=== PATIENT | male | born 1980 | race Caucasian/White ===

== ENCOUNTER 2016-12-12 00:44 | Emergency (ER) | payer OTHER ==
[~2016-12-12] VITALS: Ht 182.9 cm; Wt 115.0 kg
[~2016-12-12 00:44] MED LIST: ACET500C5 PO; BACTDS PO; HYDR-2086 PO; ONDA8TAB14 PO
[2016-12-12 01:07] VITALS: Ht 182.9 cm; Wt 115.0 kg
[2016-12-12] MEDS ORDERED: SOD CHLORIDE 0.9% 1,000 ML IV STA (01:57)
[2016-12-12 02:35] LABS: ADD SCAN DIFF NO
[2016-12-12 02:37] LABS: BASOPHILS % 0.4 % (0.0-2.0); EOSINOPHILS # 0.1 10^3/ul (0.0-0.5); EOSINOPHILS % 0.6 % (0.0-7.0); HEMATOCRIT 39.1 % (42.0-52.0); HEMOGLOBIN 13.4 g/dl (14.0-18.0); LYMPHOCYTES # 1.5 10^3/ul (0.8-2.9); LYMPHOCYTES % 15.6 % (15.0-51.0); MEAN CORPUSCULAR HEMOGLOBIN 28.6 pg (29.0-33.0); MEAN CORPUSCULAR HGB CONC 34.3 g/dl (32.0-37.0); MEAN CORPUSCULAR VOLUME 83.4 fl (82.0-101.0); MEAN PLATELET VOLUME 10.8 fl (7.4-10.4); MONOCYTE # 0.8 10^3/ul (0.3-0.9); MONOCYTES % 8.4 % (0.0-11.0); NEUTROPHIL # 7.2 10^3/ul (1.6-7.5); NEUTROPHILS % 74.7 % (39.0-77.0); PLATELET COUNT 236 10^3/UL (140-415); RED BLOOD COUNT 4.69 10^6/ul (4.70-6.10); RED CELL DISTRIBUTION WIDTH 11.9 % (11.5-14.5); WHITE BLOOD COUNT 9.6 10^3/ul (4.8-10.8)
[2016-12-12 02:45] LABS: ALBUMIN 3.9 g/dl (3.3-4.9)
[2016-12-12 02:46] LABS: POTASSIUM 3.8 mmol/L (3.5-5.1)
[2016-12-12 02:48] LABS: ALBUMIN/GLOBULIN RATIO 1.08; BILIRUBIN,INDIRECT 0.2 mg/dl (0-1.1); BILIRUBIN,TOTAL 0.2 mg/dl (0.2-1.3); CREATININE 0.93 mg/dl (0.61-1.24); TOTAL PROTEIN 7.5 g/dl (6.1-8.1)
[2016-12-12 02:49] LABS: CALCIUM 8.9 mg/dl (8.4-10.2)
[2016-12-12] MEDS ORDERED: VANCOMYCIN 1 GM (PMX) 250 ML IVPB SCH (03:00)
--- NOTE | 2016-12-12 03:03 | ERD ---
ER Documentation Chief Complaint Date/Time DATE: 12/12/16 TIME: 03:02 Chief Complaint Left leg swelling. HX of DVT HPI This is a 36-year-old male who presents to the emergency room for evaluation of left leg pain, redness and swelling. The patient does have a history of previous cellulitis which has required intravenous antibiotics in the past. The patient is also had to have surgical drainage of the leg due to cellulitis and abscess in the past. The patient states that he also has a history of a blood clot in that left lower extremity. He is not on any blood thinners at this time. The patient denies any chest pain or palpitations or fevers associated with this. He states that he his pain is an achy pain worse with any movement of the left lower extremity. ROS All systems reviewed and are negative except as per history of present illness. Medications Home Meds Active Scripts Acetaminophen* (Tylophen*) 500 Mg Capsule, 1 CAP PO Q6H Y for PAIN AND OR ELEVATED TEMP, #15 CAP Prov:JUSTINE WILSON MD 08/21/16 Ondansetron (Ondansetron Odt) 8 Mg Tab.rapdis, 8 MG PO Q6H Y for NAUSEA AND/OR VOMITING, #10 TAB Prov:JUSTINE WILSON MD 08/21/16 Sulfamethoxazole-Trimethoprim* (Bactrim* DS) 800-160 Mg Tab, 1 TAB PO BID for leg abscess s/p I & D, #20 TAB Prov:JAZMINE WHITE MD 07/30/16 Reported Medications Hydrocodone Bit-Acetaminophen* (Vicodin*) 5-300 Tab, 1 TAB PO Q4H Y for PAIN, TAB 07/23/16 Allergies Allergies: Coded Allergies: No Known Allergy (Unverified , 08/19/16) PMhx/Soc History of Surgery: No Anesthesia Reaction: No Hx Neurological Disorder: No Hx Respiratory Disorders: No Hx Cardiac Disorders: No Hx Psychiatric Problems: No Hx Miscellaneous Medical Probl: Yes (HTN) Hx Alcohol Use: No Hx Substance Use: No Hx Tobacco Use: No Smoking Status: Never smoker Physical Exam Vitals Vital Signs Date Time Temp Pulse Resp B/P Pulse Ox O2 Delivery O2 Flow Rate FiO2 12/12/16 04:00 70 20 138/80 98 Room Air 12/12/16 03:00 77 20 144/87 98 Room Air 12/12/16 01:58 92 20 155/95 99 Room Air 12/12/16 01:07 98.4 96 18 155/87 96 Physical Exam INITIAL VITAL SIGNS: Reviewed by me GENERAL: The patient is well developed and appropriate for usual state of health in no apparent distress HEENT: Pupils equal, round, and reactive to light. EOMI. There is no scleral icterus. NECK: C-spine is soft and supple, there is no meningismus. There is no cervical lymphadenopathy. LUNGS: Clear to auscultation bilaterally. There are no rales, wheezes or rhonchi. HEART: Regular rate and rhythm, no murmurs, clicks, rubs or gallops. ABDOMEN: Soft, non-tender, non-distended. There are bowel sounds in all four quadrants. No rebound or guarding. EXTREMITIES: There is no peripheral cyanosis or edema. No focal swelling or erythema. NEUROLOGICAL: The patient moves all four extremities with 5/5 strength. Cranial nerves II - XII are intact. Normal gait. Alert and oriented SKIN: Erythema noted over the distal lower extremity 4 cm superior to the medial malleolus. Negative skin sloughing, no abscess. No calf tenderness per HEME/LYMPHATIC: There is no evidence of excessive bruising or lymphedema. PSYCHIATRIC: The patient does not appear anxious or depressed. Result Diagram: 12/12/1621512/12/166 Results 24 hrs Laboratory Tests Test 12/12/16 02:16 Alanine Aminotransferase (ALT/SGPT) 81IU/L Albumin 3.9g/dl Albumin/Globulin Ratio 1.08 Alkaline Phosphatase 99IU/L Anion Gap 16 Aspartate Amino Transf (AST/SGOT) 50IU/L Basophils # 0.010^3/ul Basophils % 0.4% Blood Urea Nitrogen 18mg/dl Calcium Level 8.9mg/dl Carbon Dioxide Level 25mmol/L Chloride Level 106mmol/L Creatinine 0.93mg/dl Direct Bilirubin 0.00mg/dl Eosinophils # 0.110^3/ul Eosinophils % 0.6% Globulin 3.60g/dl Glucose Level 97mg/dl Hematocrit 39.1% Hemoglobin 13.4g/dl Indirect Bilirubin 0.2mg/dl Lipase 67U/L Lymphocytes # 1.510^3/ul Lymphocytes % 15.6% Mean Corpuscular Hemoglobin 28.6pg Mean Corpuscular Hemoglobin Concent 34.3g/dl Mean Corpuscular Volume 83.4fl Mean Platelet Volume 10.8fl Monocytes # 0.810^3/ul Monocytes % 8.4% Neutrophils # 7.210^3/ul Neutrophils % 74.7% Nucleated Red Blood Cells # 0.010^3/ul Nucleated Red Blood Cells % 0.0/100WBC Platelet Count 12637^3/UL Potassium Level 3.8mmol/L Red Blood Count 4.6910^6/ul Red Cell Distribution Width 11.9% Sodium Level 143mmol/L Total Bilirubin 0.2mg/dl Total Protein 7.5g/dl White Blood Count 9.610^3/ul Current Medications Medications (Trade) Dose Ordered Sig/Дмитрий Route PRN Reason Start Time Stop Time Status Last Admin Dose Admin Sodium Chloride 1,000 ml @ 1,000 mls/hr Q1H STAT IV 12/12/16 01:57 12/12/16 02:56 DC 12/12/16 02:25 Vancomycin HCl (Vancocin) 250 ml @ 125 mls/hr ONCE IVPB 12/12/16 03:00 12/12/16 04:59 12/12/16 03:01 Procedures/MDM Ultrasound left lower extremity: No DVT This 36-year-old male presents to the ER for evaluation of left lower extremity pain and swelling. When I evaluated this patient he did have what appeared to be cellulitis on my examination. The patient had lab work drawn which does not show any leukocytosis. The patient is afebrile at this time. Ultrasound of the left lower extremities negative for DVT. The patient was given 1 g of vancomycin via IV in the emergency room. He will be discharged home with a prescription for Bactrim and Keflex to take. I advised the patient to return to the emergency room if his symptoms were to worsen or if the area of erythema were to spread. The patient verbalized understanding and will be discharged home at this time. Departure Diagnosis: Primary Impression: Left leg cellulitis Additional Impression: Normocytic anemia Condition: Stable BLESSING AKINS Dec 12, 2016 03:03
[2016-12-12 04:00] VITALS: BP 138/80; PULSE 70; RESP 20
[2016-12-12] MEDS ORDERED: CEPH-443 PO (04:38)
[2016-12-12] MEDS ORDERED: IBUP800T25 PO (04:38)
[2016-12-12] MEDS ORDERED: BACTDS PO (04:38)
--- NOTE | 2016-12-12 05:00 | RADRPT ---
PROCEDURE: ULTRASOUND LEFT LOWER EXTREMITY VENOUS CLINICAL INDICATION: 36-year-old male with left lower extremity pain. TECHNIQUE: Multiple sonographic images of the left lower extremity deep venous system was obtained utilizing grayscale, color-flow, compressive sonography and doppler imaging with augmentation. The images were reviewed on a PACS workstation. COMPARISON: Left lower extremity venous ultrasound August 19, 2016. FINDINGS: There is normal compressibility and flow within the left common femoral, deep femoral, superficial f emoral, popliteal, posterior tibial and peroneal veins IMPRESSION: No sonographic evidence for left lower extremity deep venous thrombosis. .Everette Ch MD, MD Date Time Electronically viewed and signed by .Everette Ch MD, MD on 12/12/2016 04:59 ./
== END 2016-12-12 05:01 | disposition home or self-care (01) ==
LOC: E/R 00:44
DX: L03.116 Cellulitis of left lower limb (principal); D64.9 Anemia, unspecified; I10 Essential (primary) hypertension
CPT/HCPCS: 36415; 80053; 83690; 85025; 93971; 96361; 96365; 96366; 99284; J3370; J7030